=== PATIENT | male | born 1985 | race Caucasian/White ===

== ENCOUNTER → 2018-11-27 | Outpatient (CLI) | payer OTHER ==
[~2018-11-27] MED LIST: AMBI5TAB OR; ISOVUE-370 76% 100ML VIAL (Q9967) As Ordered ONE; LUNE2TAB OR
--- NOTE | 2018-11-27 19:38 | REP ---
CT chest with IV contrast: History: Reevaluate ground-glass opacity. [facility] CT study April 07, 2018 showed a ground-glass opacity 14 x 7 mm containing a central 4.5 mm nodule. This was in the left upper lobe. CT contrast dose: 75 ml of intravenous Isovue 370. CT findings: The previously noted left upper lobe ground-glass opacity is again seen. The central nodule and the opacity both appear slightly less prominent. No progression is seen. No new pulmonary nodule is appreciated. There is a small bullous in the right upper lobe unchanged. There is mild diffuse fatty infiltration of the liver. No adrenal lesion is seen. No hilar or mediastinal mass is observed. No pleural or pericardial effusion is seen. No bony destructive lesion is observed. Impression: Left upper lobe ground-glass opacity containing a central solid nodule appears actually a little less prominent today than on CT study from April 07, 2018. Follow-up CT study suggested in 1 year. Electronically Signed by Ellis Pickens MD 11/27/2018 07:40 P
== END ==
LOC: M RAD 16:54
PROVIDERS: ATTEND Family Medicine
DX: R91.8 Other nonspecific abnormal finding of lung field (principal)

== ENCOUNTER → 2018-12-06 | Outpatient (CLI) | payer OTHER ==
[~2018-12-06] MED LIST changes: -ISOVUE-370 76% 100ML VIAL (Q9967) As Ordered ONE
--- NOTE | 2018-12-06 08:25 | PFTRPT ---
Height: 74.00 Inches Weight: 315.00 Lbs BSA: 2.64 Diagnosis: R91.8 DATE OF PROCEDURE: 12/06/2018 ORDERED BY: Clare Schwarz MD Spirometry: Pre and post bronchodilator study of excellent technical quality. Some mild difficulty with effort is noted. Forced vital capacity normal. FEV1 in proportion. Obstructive index is, therefore, normal. Flow Volume Loop: Expiratory limb of the flow volume loop is normal. No significant bronchodilator response identified. Lung Volumes: Total lung capacity normal. Residual volume is in proportion. Diffusing Capacity: Diffusing capacity normal. Hemoglobin: Hemoglobin acceptable at 13.6. Airway Mechanics: Airway resistance and conductance are normal. IMPRESSION: Normal study. MTDD
--- NOTE | 2018-12-11 07:34 | ECHO ---
DATE OF STUDY: 12/06/2018 REFERRING PHYSICIAN: Dr. Clare Schwarz INDICATION: Syncope. HEIGHT: 74 inches WEIGHT: 315 pounds 2D MEASUREMENTS: Aortic root: 4.0 cm Left atrium: 3.2 cm Left ventricle diastole: 5.0 cm Left ventricle systole: 3.2 cm Ventricular septum: 1.08 cm Posterior wall: 1.13 cm Inferior vena cava: 1.9 cm DOPPLER MEASUREMENTS: Aortic valve velocity: 113 cm/s LVOT velocity: 80.9 cm/s Mitral E velocity: 64.7 cm/s Mitral A velocity: 75.0 cm/s Mitral E deceleration time: 208 ms Pulmonary acceleration time: 113 ms No aortic, mitral, tricuspid, or pulmonic regurgitation. MITRAL ANNULAR TISSUE DOPPLER: E prime septal: 6.7 cm/s E prime lateral: 9.7 cm/s DESCRIPTION: Rhythm was sinus. Image quality was fair. No pericardial effusion. This was a 2D, M-mode, color flow Doppler, and pulse wave Doppler examination and included mitral annular tissue Doppler. CONCLUSIONS: 1. Mild dilatation of the aortic root at the level of the sinus of Valsalva (4.0 cm). 2. Normal left ventricle internal dimensions and wall thickness. Normal regional left ventricle (LV) wall motion and wall thickening. Normal LV systolic function. Left ventricular ejection fraction (LVEF) 60-65% by visual estimate. Grade 1 LV diastolic dysfunction. 3. Otherwise normal appearing echocardiogram Doppler.
== END ==
LOC: M CARPUL 07:34
PROVIDERS: ATTEND Family Medicine
DX: R55 Syncope and collapse (principal); R94.31 Abnormal electrocardiogram [ECG] [EKG]; R91.8 Other nonspecific abnormal finding of lung field

== ENCOUNTER → 2018-12-13 | Outpatient (REF) | payer OTHER ==
[2018-12-13 12:53] LABS: AMORPHOUS SEDIMENT MODERATE (NEGATIVE); APPEARANCE, URINE TURBID (CLEAR); BACTERIA, URINE AUTO NEGATIVE (NEGATIVE); BILIRUBIN, URINE AUTO NEGATIVE (NEGATIVE); BLOOD, URINE BLOOD NEGATIVE (NEGATIVE); COLOR, URINE YELLOW (YELLOW); GLUCOSE, URINE (UA) AUTO NEGATIVE (NEGATIVE); KETONE, URINE AUTO NEGATIVE (NEGATIVE); LEUKOCYTE ESTERASE, URINE AUTO NEGATIVE (NEGATIVE); MUCUS, URINE MODERATE (NEGATIVE); NITRITE, URINE AUTO NEGATIVE (NEGATIVE); PROTEIN, URINE AUTO NEGATIVE (NEGATIVE); RBC, URINE AUTO 4 /HPF (0-3); SPECIFIC GRAVITY URINE AUTO 1.025 (1.002-1.035); SQUAMOUS EPITHELIAL CELL UR AU 0 /HPF (0-6); UROBILINOGEN, URINE AUTO 0.2 mg/dL (0.0-2.0); WBC, URINE AUTO 0 /HPF (0-3)
[2018-12-13 13:03] LABS: ALBUMIN 3.6 GM/DL (3.2-5.2); ALT/SGPT 110 U/L (12-78); BILIRUBIN,TOTAL 0.7 MG/DL (0.2-1.0); BLOOD UREA NITROGEN 12 MG/DL (7-18); CALCIUM LEVEL 8.5 MG/DL (8.5-10.1); CARBON DIOXIDE LEVEL 29 MEQ/L (21-32); CHLORIDE LEVEL 105 MEQ/L (98-107); CHOLESTEROL LEVEL 159 MG/DL (<200); CHOLESTEROL RISK RATIO 6.115 (<5); CREATININE FOR GFR 0.75 MG/DL (0.70-1.30); FREE T4 1.12 NG/DL (0.76-1.46); GLOMERULAR FILTRATION RATE > 60.0 (>60); GLUCOSE, FASTING 105 MG/DL (70-100); HDL CHOLESTEROL 26 MG/DL (>40); LDL CHOLESTEROL 81 MG/DL (<100); NON-HDL-C 133 MG/DL; POTASSIUM SERUM 4.3 MEQ/L (3.5-5.1); SODIUM LEVEL 139 MEQ/L (136-145); THYROID STIMULATING HORMONE 0.982 uIU/ML (0.358-3.740); TRIGLYCERIDES LEVEL 258 MG/DL (<150)
== END ==
LOC: M SFHCLERA 09:10
PROVIDERS: ATTEND Family Medicine
DX: Z00.00 Encounter for general adult medical examination without abnormal findings (principal)

== ENCOUNTER → 2024-03-26 | Outpatient (CLI) | payer OTHER | LOC: M WUC 10:52 | PROVIDERS: ATTEND Student in an Organized Health Care Education/Training Program | DX: S20.224A Contusion of middle back wall of thorax, initial encounter (principal) ==

== ENCOUNTER → 2025-02-07 | Outpatient (CLI) | payer OTHER ==
[2025-02-07 12:31] LABS: BASO # 0.1 10^3/uL (0.0-0.2); BASO % 1.1 % (0.0-1.0); EOS # 0.2 10^3/uL (0.0-0.5); EOS % 3.6 % (0.0-3.0); LYMPH # 2.3 10^3/uL (1.5-5.0); LYMPH % 42.5 % (24.0-44.0); MONO # 0.6 10^3/uL (0.0-0.8); MONO % 10.0 % (2.0-8.0); NEUTROPHILS # 2.3 10^3/uL (1.5-8.5); NEUTROPHILS % 42.6 % (36.0-66.0); PLATELET COUNT, AUTOMATED 264 10^3/uL (150-450)
[2025-02-07 13:03] LABS: ALT/SGPT 154 U/L (7.0-40); AST/SGOT 91 U/L (<34); CALCIUM LEVEL 8.8 MG/DL (8.5-10.1); CARBON DIOXIDE LEVEL 29 MMOL/L (20-31); CHLORIDE LEVEL 104 MMOL/L (98-107); CHOLESTEROL LEVEL 207 MG/DL (<200); CHOLESTEROL RISK RATIO 6.44 (<5); CREATININE FOR GFR 0.66 MG/DL (0.70-1.30); GLOMERULAR FILTRATION RATE > 90.0 (>60); LDL CHOLESTEROL 133.1 MG/DL (<100); NON-HDL-C 174.9 MG/DL; POTASSIUM SERUM 4.8 MMOL/L (3.5-5.1); SODIUM LEVEL 142 MMOL/L (136-145); TRIGLYCERIDES LEVEL 209 MG/DL (<150)
[2025-02-07 13:05] LABS: FREE T4 1.39 NG/DL (0.89-1.76)
== END ==
LOC: M WUC 10:43
PROVIDERS: ATTEND Nurse Practitioner Family
DX: Z00.00 Encounter for general adult medical examination without abnormal findings (principal)